=== PATIENT | female | born 1995 | race Caucasian/White ===

== ENCOUNTER → 2016-07-24 | Outpatient (CLI) | payer OTHER ==
--- NOTE | 2016-07-24 08:52 | DIAGNOSTIC IMAGING REPORT ---
RIGHT FOOT MIN 3 VIEWS ROUTINE CLINICAL HISTORY: Right foot pain status post trauma COMPARISON: None. DISCUSSION: No fractures or dislocations are visualized. IMPRESSION: No fractures identified. Electronically signed by: Caden Laughlin M.D. 07/24/2016 8:51 AM Dictated Date/Time: 07/24/2016 8:50 AM
== END | disposition home or self-care (01) ==
LOC: C.RAD1850 08:27
PROVIDERS: ATTEND Nurse Practitioner Adult Health
DX: M79.671 Pain in right foot (principal)

== ENCOUNTER → 2016-08-07 | Outpatient (CLI) | payer OTHER ==
--- NOTE | 2016-08-07 08:50 | DIAGNOSTIC IMAGING REPORT ---
RIGHT TIBIA/FIBULA 2 VIEWS ROUTINE CLINICAL HISTORY: Right tibia and fibula pain. COMPARISON: None. DISCUSSION: No fractures or dislocations are visualized. There are no erosive or destructive changes. IMPRESSION: No bony abnormalities identified. Electronically signed by: Caden Laughlin M.D. 08/07/2016 8:49 AM Dictated Date/Time: 08/07/2016 8:48 AM
== END | disposition home or self-care (01) ==
LOC: C.RAD1850 08:38
PROVIDERS: ATTEND Nurse Practitioner Adult Health
DX: M79.661 Pain in right lower leg (principal)